=== PATIENT | male | born 1955 ===

== ENCOUNTER 2018-07-06 11:41 | Outpatient (CLI) | payer OTHER ==
[~2018-07-06] VITALS: Ht 167.6 cm; Wt 74.8 kg
== END 2018-07-06 12:00 | disposition home or self-care (01) ==
LOC: OFIC 805 11:41
DX: H61.23 Impacted cerumen, bilateral (principal); H60.8X1 Other otitis externa, right ear

== ENCOUNTER 2018-07-21 07:48 | Outpatient (CLI) | payer OTHER ==
[~2018-07-21] VITALS: Ht 152.4 cm; Wt 74.8 kg
== END 2018-07-21 08:10 | disposition home or self-care (01) ==
LOC: OFIC 805 07:48
DX: H61.23 Impacted cerumen, bilateral (principal); H60.8X1 Other otitis externa, right ear

== ENCOUNTER 2018-09-09 08:56 | Outpatient (CLI) | payer OTHER | END 2018-09-09 09:15 | disposition home or self-care (01) | LOC: OFIC 805 08:56 | DX: H61.23 Impacted cerumen, bilateral (principal); H60.8X2 Other otitis externa, left ear; H91.8X2 Other specified hearing loss, left ear ==

== ENCOUNTER 2018-09-15 07:57 | Outpatient (CLI) | payer OTHER ==
[~2018-09-15] VITALS: Ht 152.4 cm; Wt 74.8 kg
== END 2018-09-15 08:15 | disposition home or self-care (01) ==
LOC: OFIC 805 07:57
DX: H60.8X2 Other otitis externa, left ear (principal); H91.8X2 Other specified hearing loss, left ear

== ENCOUNTER 2018-09-29 07:26 | Outpatient (CLI) | payer OTHER ==
[~2018-09-29] VITALS: Ht 152.4 cm; Wt 74.8 kg
== END 2018-09-29 07:40 | disposition home or self-care (01) ==
LOC: OFIC 805 07:26
DX: H61.23 Impacted cerumen, bilateral (principal); H60.8X2 Other otitis externa, left ear

== ENCOUNTER 2018-12-31 08:17 | Outpatient (CLI) | payer OTHER ==
[~2018-12-31] VITALS: Ht 152.4 cm; Wt 77.1 kg
== END 2018-12-31 08:35 | disposition home or self-care (01) ==
LOC: OFIC 805 08:17
DX: H61.23 Impacted cerumen, bilateral (principal); H93.90 Unspecified disorder of ear, unspecified ear

== ENCOUNTER 2019-05-05 07:21 | Outpatient (CLI) | payer OTHER ==
[~2019-05-05] VITALS: Ht 152.4 cm; Wt 75.7 kg
[2019-05-05] MEDS ORDERED: FLONASE16 GM NASAL (09:10)
== END 2019-05-05 13:20 | disposition home or self-care (01) ==
LOC: OFIC 805 07:21
DX: J31.0 Chronic rhinitis (principal); J34.3 Hypertrophy of nasal turbinates; H61.23 Impacted cerumen, bilateral

== ENCOUNTER 2019-08-24 09:29 | Outpatient (CLI) | payer OTHER ==
[~2019-08-24 09:29] MED LIST: FLONASE16 GM NASAL
[2019-08-24] MEDS ORDERED: LIPO-FLAVONOID1 EACH PO (14:45)
[2019-08-24] MEDS ORDERED: FLONASE16 GM NASAL (14:46)
== END 2019-08-24 15:00 | disposition home or self-care (01) ==
LOC: OFIC 805 09:29
DX: H61.23 Impacted cerumen, bilateral (principal); H93.13 Tinnitus, bilateral

== ENCOUNTER → 2019-09-15 | Outpatient (CLI) | payer OTHER ==
[~2019-09-15] MED LIST changes: +LIPO-FLAVONOID1 EACH PO
== END | disposition home or self-care (01) ==
LOC: OFIC 805 12:47
DX: H93.13 Tinnitus, bilateral (principal)

== ENCOUNTER 2020-01-05 10:04 | Outpatient (CLI) | payer OTHER | END 2020-01-05 17:44 | disposition home or self-care (01) | LOC: OFIC 805 10:04 | PROVIDERS: ATTEND Otolaryngology | DX: J31.0 Chronic rhinitis (principal); H93.13 Tinnitus, bilateral; H61.23 Impacted cerumen, bilateral; H90.71 Mixed conductive and sensorineural hearing loss, unilateral, right ear, with unrestricted hearing on the contralateral side; H60.8X2 Other otitis externa, left ear ==

== ENCOUNTER → 2020-03-30 | Outpatient (CLI) | payer OTHER | END | disposition home or self-care (01) | LOC: OFIC 805 10:16 | PROVIDERS: ATTEND Otolaryngology | DX: H90.71 Mixed conductive and sensorineural hearing loss, unilateral, right ear, with unrestricted hearing on the contralateral side (principal); H93.8X3 Other specified disorders of ear, bilateral; H61.23 Impacted cerumen, bilateral ==

== ENCOUNTER 2020-06-29 09:09 | Outpatient (CLI) | payer OTHER | END 2020-06-29 18:29 | disposition home or self-care (01) | LOC: OFIC 805 09:09 | PROVIDERS: ATTEND Otolaryngology | DX: H90.42 Sensorineural hearing loss, unilateral, left ear, with unrestricted hearing on the contralateral side (principal); H90.71 Mixed conductive and sensorineural hearing loss, unilateral, right ear, with unrestricted hearing on the contralateral side; H93.13 Tinnitus, bilateral; J31.0 Chronic rhinitis; J34.3 Hypertrophy of nasal turbinates; H60.8X3 Other otitis externa, bilateral; H61.23 Impacted cerumen, bilateral; H93.8X3 Other specified disorders of ear, bilateral ==